=== PATIENT | male | born 1985 | race Caucasian/White ===

== ENCOUNTER 2017-03-26 12:00 | Inpatient (IN) | payer MEDICAID ==
[~2017-03-26] VITALS: Ht 175.3 cm; Wt 79.4 kg
--- NOTE | ~2017-03-26 | HP ---
Unit #: [id number] #: [id number] Patient: VARINDER PEARL [id number] [place] [address] [id number] MR#: [id number] NAME: VARINDER PEARL ROOM: P175 Age: 31 Sex: M Admission Date: 03/26/2017 : 1985 Attending Physician: Miguel Magaña M.D. Admitting Physician: Miguel Magaña M.D. Primary Care Physician: Primary Care Physician No HISTORY AND PHYSICAL NOTE Varinder is a 31 year old who was admitted and discharged within the first 24 hours. He was not seen for a history and physical. Dictated by... Jessica Palacios P.A.-C. for Addis Drummond/ankur TD: 03/28/2017 04:18 JOB #: [id number] HISTORY AND PHYSICAL Page 1 of 1 X Jessica Palacios HISTORY AND PHYSICAL
--- NOTE | ~2017-03-26 | PA ---
Unit #: [id number] #: [id number] Patient: VARINDER PEARL [id number] [place] [address] [id number] MR#: [id number] NAME: VARINDER PEARL ROOM: P175 Age: 31 Sex: M Admission Date: 03/26/2017 : 1985 Date of Assessment: 03/27/2017 Attending Physician: Miguel Magaña M.D. Admitting Physician: Miguel Magaña M.D. Primary Care Physician: Primary Care Physician No PSYCHIATRIC ASSESSMENT IDENTIFYING INFORMATION The patient is a 31-year-old white male admitted with a history of opioid dependence. CHIEF COMPLAINT I detox last week. INFORMANT The patient, reliability fair. HISTORY OF PRESENT ILLNESS The patient is a 31-year-old single white male admitted to the [address] [place] [address] with a history of opioid dependence. The patient reports that he relapsed 3 months ago but stopped using approximately one week ago. He had let his community service officer coordinator know that he had been using and it has been recommended that he come to this facility for detox. The patient is today exhibiting no signs or symptoms of withdrawal and states that he actually detoxed last week. He reports that he has made arrangements for post discharge residential chemical dependence treatment and hopes to go to an available bed later today. The patient is currently denying any suicidal or homicidal ideation and denies prior suicidal ideation attempts or gestures. PAST PSYCHIATRIC HISTORY Noncontributory. FAMILY HISTORY Noncontributory. SOCIAL HISTORY The patient is currently on parole on drug related charges. He reports a history of intravenous opioid dependence. MENTAL STATUS EXAM At this time reveals the patient to be a well-developed, well-nourished heavily and grotesquely tattooed white male appearing his stated age. He is in no apparent physical distress at the time of the examination. He is awake, alert and oriented in all spheres. His mood is mildly dysphoric. His affect is congruent. Speech is generally relevant and coherent. There are no gross deficits to memory or cognition noted. Intelligence is judged to be in the average range based on fund of knowledge. The patient is cooperative during interview. He is denies current or homicidal Unit #: [id number] #: [id number] Patient: VARINDER PEARL ideation and psychotic features. Judgement and insight appear to be intact. ASSETS AND LIABILITIES ASSETS: Motivation for change, future orientation. LIABILITEIS: Legal issues. DIAGNOSTIC IMPRESSION Opioid use disorder. TREATMENT PLAN The patient is requesting discharge today stating that he has made arrangements to go for residential chemical dependence treatment of six months duration. He will be discharged as per his request. Dictated by... Miguel Magaña M.D. SRI/ankur TD: 03/28/2017 03:52 JOB #: [id number] PSYCHIATRIC ASSESSMENT Page 1 of 1 X Miguel Mgaaña MD X PSYCHIATRIC ASSESSMENT
--- NOTE | ~2017-03-26 | DS ---
Unit #: [id number] #: [id number] Patient: VARINDER PEARL [id number] [place] [address] [id number] MR#: [id number] NAME: VARINDER PEARL ROOM: 75 Age: 31 Sex: M Admission Date: 03/26/2017 : 1985 Discharge Date: 03/27/2017 Attending Physician: Miguel Magaña M.D. Primary Care Physician: Primary Care Physician No DISCHARGE SUMMARY REASON FOR ADMISSION The patient is a 31-year-old white male, admitted to the [facility] unit for opioid detox. HOSPITAL COURSE The patient was admitted to the [facility] unit and placed on routine detoxification protocol for opioids. He stated to this physician when seen on 03/27/2017 that he had already undergone opioid detox and requested discharge stating that he had made arrangements to go to a residential chemical dependency treatment in the area. Discharge was as per his request ordered. FINAL DIAGNOSIS Opioid use disorder. DISPOSITION ON DISCHARGE No psychotropic or other medications were ordered at the time of discharge. FOLLOWUP Followup will take place through the auspices of community mental health resources. PROGNOSIS The patient's prognosis is considered fair. Dictated by... Miguel Magaña M.D. CB/guillermo TD: 03/27/2017 22:45 JOB #: [id number] Unit #: [id number] #: [id number] Patient: VARINDER PEARL DISCHARGE SUMMARY Page 1 of 1 X Miguel Magaña MD X DISCHARGE SUMMARY
[2017-03-27 09:28] LABS: BASOPHIL% 0.5 % (0-2.5); EOSINOPHIL# 0.1 X10e3 (0-0.7); EOSINOPHIL% 1.7 % (0.0-7.0); HEMATOCRIT 39.2 % (38.0-50.0); HEMOGLOBIN 13.2 gm/dL (13.0-16.0); LYMPHOCYTE# 2.1 X10e3 (1.0-3.5); MEAN CELL VOLUME 84.9 FL (83-96); MEAN CORPUSCULAR HEMOGLOBIN 28.7 PG (28-34); MEAN CORPUSCULAR HGB CONC 33.8 g/dL (30-36); MEAN PLATELET VOLUME 7.7 FL (6.5-11.5); MONOCYTE# 0.7 X10e3 (0-1.0); NEUTROPHIL# 2.6 X10e3 (1.5-7.1); NEUTROPHIL% 46.8 % (40-75); PLATELET COUNT 187 X10e3 (140-420); RED BLOOD COUNT 4.61 X10e (3.90-5.60); WHITE BLOOD COUNT 5.5 X10e3 (4.0-10.5)
[2017-03-27 09:52] LABS: DIFF IND NO
[2017-03-27 10:06] LABS: ALBUMIN SERUM 3.7 g/dL (3.5-5.0); BILIRUBIN,TOTAL 0.5 mg/dL (0.2-2.0); BUN/CREATININE RATIO 14.54; CALCIUM SERUM 9.1 mg/dL (8.4-10.2); CREATININE SERUM 1.1 mg/dL (0.6-1.4); GLOM FILT RATE Estimated 88.4 mL/min (>60); POTASSIUM 4.2 mmol/L (3.5-5.1); PROTEIN TOTAL SERUM 6.8 g/dL (6.0-8.3)
[2017-03-27 12:37] LABS: URINE APPEARANCE CLEAR; URINE BILIRUBIN NEG (NEG); URINE BLOOD NEG (NEG); URINE COLOR YELLOW; URINE GLUCOSE NEG (NEG); URINE KETONE NEG (NEG); URINE LEUKOCYTE ESTERASE NEG (NEG); URINE NITRATE NEG (NEG); URINE PROTEIN NEG (NEG); URINE SPECIFIC GRAVITY 1.014 (1.003-1.035); URINE UROBILINOGEN 0.2 MG/DL (NEG)
[2017-03-27 12:47] LABS: AMPHETAMINE NEG (NEG); BARBITURATES NEG (NEG); BENZODIAZEPINES NEG (NEG); COCAINE NEG (NEG); MARIJUANA POS (NEG); OPIATES POS (NEG); TRICYCLIC ANTIDEPRESSANTS NEG (NEG); U METHADONE NEG (NEG)
[2017-04-01 14:32] LABS: HA AB IGM (HEPPAN) Nonreactive (()); HB CORE AB IGM (HEPPAN) Nonreactive (Nonreactive); HB S AG (HEPPAN) Nonreactive (Nonreactive); HEP C AB (HEPPAN) Reactive (Nonreactive)
== END 2017-03-27 16:00 | DRG 897 ==
LOC: P1E 17:00
PROVIDERS: Specialist
PROC: HZ2ZZZZ Detoxification Services for Substance Abuse Treatment (ICD-10-PCS; principal; 2017-03-27)
DX: F11.20 Opioid dependence, uncomplicated (principal)
CPT/HCPCS: 80053; 80074; 80307; 81003; 85025; 86592; 87522; 87806